=== PATIENT | female | born 1960 | race African-American/Black ===

== ENCOUNTER 2016-11-21 21:33 | Inpatient (IN) | payer MEDICAID ==
[~2016-11-21] VITALS: Ht 162.6 cm; Wt 198.2 kg
[~2016-11-21 21:33] MED LIST: ALBUAER3 IN; BENA20TA70 PO; DOXY-216 PO; FERR27TA2 PO; FURO20TA PO; HYDR-531 PO; POTA10IN PO
[2016-11-21] MEDS ORDERED: IPRATROPIUM BROM 0.5 MG/2.5ML INH SOL NEB ONE (22:30)
[2016-11-21] MEDS ORDERED: ALBUTEROL SULF 2.5 MG/0.5ML(0.5%) NEB SOLN NEB ONE (22:30)
[2016-11-21 22:46] LABS: Basophils # (auto) 0 uL; Basophils % (auto) 0.3 % (0.0-2.0); DEFINITIVE VIEW TRANSMISSION; Eosinophils # (auto) 0.4 uL; Eosinophils % (auto) 2.9 % (0.0-7.0); Hematocrit 42.7 % (36.0-46.0); Hemoglobin 13.5 g/dL (12.2-16.2); Lymphocytes % (auto) 7.6 % (10.0-50.0); Mean Corpuscular Hemoglobin 26.5 pg (28.0-32.0); Mean Corpuscular Hgb Conc. 31.7 g/dL (32.0-36.0); Mean Corpuscular Volume 83.4 fL (80.0-100.0); Mean Platelet Volume 9.8 fL (7.4-10.4); Monocytes # (auto) 0.4 uL; Monocytes % (auto) 2.8 % (0.0-12.0); Neutrophils # (auto) 11.3 uL; Neutrophils % (auto) 86.4 % (37.0-80.0); Platelet Count (auto) 268 10^3/uL (140-450); Red Cell Distribution Width 18.2 % (11.6-16.0); SUSPECT VIEW TRANSMISSION; White Blood Cell 13.1 10^3/uL (4.4-10.8)
[2016-11-21 23:08] LABS: INR 0.98 (0.9-1.15); Partial Thromboplastin Time 29.9 sec (22.64-33.71); Prothrombin Time 10.6 sec (9.37-12.3)
[2016-11-21 23:09] LABS: Anion Gap 5 (5-15); Aspartate Aminotransferase 28 U/L (15-37); BUN/Creatinine Ratio 11.5; Blood Urea Nitrogen 9 mg/dL (7-18); Carbon Dioxide 29 mmol/L (21-32); Chloride 104 mmol/L (98-107); GFR African American 98 mL/min; GFR Non-African American 81 mL/min; Glucose 139 mg/dL (74-106); Potassium 4.2 mmol/L (3.5-5.1); Sodium 138 mmol/L (136-145)
[2016-11-21 23:17] LABS: Alkaline Phosphatase 131 U/L (45-117); B-Type Natriuretic Peptide 35.35 pg/mL (0-100); Bilirubin, Total 0.3 mg/dL (0.2-1.0); Total Protein 8.9 g/dL (6.4-8.2)
[2016-11-21 23:19] LABS: Temperature: 23.3 C (20.0-25.0)
[2016-11-22] MEDS ORDERED: IPRATROPIUM BROM 0.5 MG/2.5ML INH SOL NEB ONE ×5 (00:30→07:45)
[2016-11-22] MEDS ORDERED: ALBUTEROL SULF 2.5 MG/0.5ML(0.5%) NEB SOLN NEB ONE ×6 (00:30→10:30)
[2016-11-22] MEDS ORDERED: methylPREDNISolone SOD SUCC 125 MG/2 ML VL IV ONE ×3 (00:30→10:30)
[2016-11-22 00:38] LABS: Allen Test Yes; Blood 02Sat 94.3 % (96-100); Blood COHb 1.3 % (0.5-1.5); Blood MetHb 0.3 % (0.0-1.5); HCO3 25.6 mmol/L (22-26.0); HHb 5.6 % (0.0-5.0); MODE NASAL CANNULA; O2Hb 92.8 % (94.0-97.0); PCO2(T) 55.7 mmHg (35.0-45.0); PO2(T) 85.5 mmHg (80.0-100.0); Sample Type Arterial
[2016-11-22] MEDS ORDERED: TEMAZEPAM 15 MG CAP PO PRN (07:15)
[2016-11-22] MEDS ORDERED: ONDANSETRON HCL 4 MG/2 ML VIAL IV PRN (07:15)
[2016-11-22] MEDS ORDERED: MORPHINE SULF INJ 2 MG/ML SYRINGE 1ML IV PRN ×2 (07:15)
[2016-11-22] MEDS ORDERED: ACETAMINOPHEN 325 MG TAB PO PRN (07:15)
[2016-11-22] MEDS ORDERED: NITROGLYCERIN 0.4 MG SL TAB SL PRN (07:15)
[2016-11-22] MEDS ORDERED: ALBUTEROL SULF 2.5 MG/0.5ML(0.5%) NEB SOLN NEB PRN (07:30)
[2016-11-22] MEDS ORDERED: PIPERACILLIN-TAZOB 3.375GM 100 ML IV ONE ×2 (07:45→10:00)
[2016-11-22 09:01] VITALS: BP 128/70
[2016-11-22] MEDS ORDERED: ENOXAPARIN SOD 30 MG/0.3 ML SYRINGE SC SCH (10:00)
[2016-11-22] MEDS ORDERED: IPRATROPIUM BROM 0.5 MG/2.5ML INH SOL NEB SCH (10:00)
[2016-11-22] MEDS ORDERED: methylPREDNISolone SOD SUCC 125 MG/2 ML VL IV SCH (10:00)
[2016-11-22 10:01] LABS: Allen Test Yes; Base Excess 1.8 mmol/L (-2.0-2.0); Blood 02Sat 90.2 % (96-100); Blood COHb 0.7 % (0.5-1.5); Blood MetHb 0.3 % (0.0-1.5); HCO3 29.4 mmol/L (22-26.0); HHb 9.7 % (0.0-5.0); MODE NASAL CANNULA; O2Hb 89.3 % (94.0-97.0); PCO2(T) 59.6 mmHg (35.0-45.0); PO2(T) 64.3 mmHg (80.0-100.0); Sample Type Arterial
[2016-11-22] MEDS: ALBUTEROL SULF 2.5 MG/0.5ML(0.5%) NEB SOLN NEB SCH ×2 (12:00→19:55)
[2016-11-22 12:30] VITALS: BP 129/75
[2016-11-22] MEDS: ZINC SULFATE 220 MG CAP PO SCH (12:53)
[2016-11-22] MEDS: FAMOTIDINE 20 MG TAB PO SCH ×2 (12:53→22:02)
[2016-11-22] MEDS: ASCORBIC ACID 500 MG TAB PO SCH ×2 (12:53→22:03)
[2016-11-22] MEDS: MULTIPLE VITAMIN TAB PO SCH (12:53)
[2016-11-22] MEDS: ENOXAPARIN SOD 40 MG/0.4 ML SYRINGE SC SCH (12:53)
[2016-11-22] MEDS: PIPERACILLIN-TAZOB 3.375GM 100 ML IV SCH ×2 (12:54→16:41)
[2016-11-22] MEDS: FUROSEMIDE 40 MG/4 ML VIAL IV SCH ×2 (12:54→17:22)
[2016-11-22] MEDS: cloNIDine HCL 0.1 MG TAB PO SCH ×2 (14:03→22:00)
[2016-11-22] MEDS: SODIUM CHLOR 0.9% PF (SALINE LOCK) 10ML VIAL IV SCH ×2 (14:03→22:02)
[2016-11-22 16:29] VITALS: BP 128/76
[2016-11-22] MEDS: methylPREDNISolone SOD SUCC 125 MG/2 ML VL IV SCH ×2 (16:41→22:02)
[2016-11-22] MEDS: IPRATROPIUM BROM 0.5 MG/2.5ML INH SOL NEB PRN (19:55)
[2016-11-22 20:00] VITALS: BP 121/58
[2016-11-22 22:00] VITALS: BP 121/58
[2016-11-23] VITALS (7 sets, daily range): BP systolic 121–151; BP diastolic 64–94
[2016-11-23] MEDS: IPRATROPIUM BROM 0.5 MG/2.5ML INH SOL NEB PRN ×3 (00:38→21:59)
[2016-11-23] MEDS: PIPERACILLIN-TAZOB 3.375GM 100 ML IV SCH ×2 (00:55→05:41)
[2016-11-23 02:33] LABS: Urine Bilirubin Negative (Negative); Urine Blood Negative /uL (Negative); Urine Color Yellow (Yellow); Urine Glucose Normal (Normal); Urine Ketone Negative (Negative); Urine Nitrite Negative (Negative); Urine RBC 1 /hpf (0 - 4); Urine Squamous Epithelial Cell FEW /hpf (<5); Urine Urobilinogen Normal (Negative)
[2016-11-23] MEDS: methylPREDNISolone SOD SUCC 125 MG/2 ML VL IV SCH ×4 (03:42→22:10)
[2016-11-23] MEDS: FUROSEMIDE 40 MG/4 ML VIAL IV SCH ×2 (05:41→18:27)
[2016-11-23] MEDS: SODIUM CHLOR 0.9% PF (SALINE LOCK) 10ML VIAL IV SCH ×3 (05:41→22:10)
[2016-11-23] MEDS: cloNIDine HCL 0.1 MG TAB PO SCH (05:41)
[2016-11-23 06:00] LABS: Basophils # (auto) 0.1 uL; Basophils % (auto) 0.6 % (0.0-2.0); DEFINITIVE VIEW TRANSMISSION; Eosinophils # (auto) 0 uL; Eosinophils % (auto) 0.1 % (0.0-7.0); Hematocrit 39.5 % (36.0-46.0); Hemoglobin 12.4 g/dL (12.2-16.2); Lymphocytes # (auto) 0.9 uL; Lymphocytes % (auto) 8.3 % (10.0-50.0); Mean Corpuscular Hemoglobin 26.4 pg (28.0-32.0); Mean Corpuscular Hgb Conc. 31.4 g/dL (32.0-36.0); Mean Corpuscular Volume 84.2 fL (80.0-100.0); Mean Platelet Volume 11.4 fL (7.4-10.4); Monocytes # (auto) 0.3 uL; Monocytes % (auto) 2.3 % (0.0-12.0); Neutrophils # (auto) 10.1 uL; Neutrophils % (auto) 88.7 % (37.0-80.0); Platelet Count (auto) 238 10^3/uL (140-450); Red Cell Distribution Width 18.1 % (11.6-16.0); SUSPECT VIEW TRANSMISSION; White Blood Cell 11.4 10^3/uL (4.4-10.8)
[2016-11-23 06:27] LABS: Albumin 3.1 g/dL (3.4-5.0); Calcium 8.8 mg/dL (8.5-10.1); Potassium 4.6 mmol/L (3.5-5.1)
[2016-11-23 06:38] LABS: Bilirubin, Total 0.2 mg/dL (0.2-1.0)
[2016-11-23] MEDS ORDERED: ALBUTEROL SULF 2.5 MG/0.5ML(0.5%) NEB SOLN ONE ×2 (10:08→21:47)
[2016-11-23] MEDS: MULTIPLE VITAMIN TAB PO SCH (10:08)
[2016-11-23] MEDS: FAMOTIDINE 20 MG TAB PO SCH ×2 (10:08→22:10)
[2016-11-23] MEDS: ASCORBIC ACID 500 MG TAB PO SCH ×2 (10:08→22:10)
[2016-11-23] MEDS: ENOXAPARIN SOD 40 MG/0.4 ML SYRINGE SC SCH (10:08)
[2016-11-23] MEDS: ZINC SULFATE 220 MG CAP PO SCH (10:08)
[2016-11-23] MEDS: ALBUTEROL SULF 2.5 MG/0.5ML(0.5%) NEB SOLN NEB SCH ×3 (10:16→21:57)
[2016-11-23] MEDS ORDERED: FERROUS SULFATE 325 MG TAB PO ONE (10:30)
[2016-11-23] MEDS: BENAZEPRIL HCL 10 MG TAB PO SCH (12:41)
[2016-11-23] MEDS: DOXYCYCLINE 100 MG TAB/CAP PO SCH ×2 (12:41→22:10)
[2016-11-23] MEDS: HCTZ 25 MG TAB PO SCH (12:42)
[2016-11-23] MEDS ORDERED: cloNIDine HCL 0.1 MG TAB PO SCH (14:00)
[2016-11-23] MEDS ORDERED: cloNIDine HCL 0.1 MG TAB PO PRN ×2 (14:17→14:45)
[2016-11-23] MEDS ORDERED: DOXYCYCLINE HYCLATE PO SCH (22:00)
[2016-11-24] VITALS (7 sets, daily range): BP systolic 127–156; BP diastolic 70–98
[2016-11-24] MEDS: methylPREDNISolone SOD SUCC 125 MG/2 ML VL IV SCH ×4 (04:05→21:32)
[2016-11-24] MEDS: SODIUM CHLOR 0.9% PF (SALINE LOCK) 10ML VIAL IV SCH ×3 (05:50→21:17)
[2016-11-24] MEDS: FUROSEMIDE 40 MG/4 ML VIAL IV SCH ×2 (05:50→18:08)
[2016-11-24 06:16] LABS: Basophils # (auto) 0 uL; DEFINITIVE VIEW TRANSMISSION; Eosinophils # (auto) 0 uL; Hematocrit 39.8 % (36.0-46.0); Hemoglobin 12.8 g/dL (12.2-16.2); Lymphocytes # (auto) 0.9 uL; Lymphocytes % (auto) 6.4 % (10.0-50.0); Mean Corpuscular Hemoglobin 26.6 pg (28.0-32.0); Mean Corpuscular Hgb Conc. 32.1 g/dL (32.0-36.0); Mean Corpuscular Volume 82.8 fL (80.0-100.0); Mean Platelet Volume 10.1 fL (7.4-10.4); Monocytes # (auto) 0.6 uL; Monocytes % (auto) 4.6 % (0.0-12.0); Neutrophils # (auto) 11.9 uL; Platelet Count (auto) 264 10^3/uL (140-450); Red Cell Distribution Width 18.3 % (11.6-16.0); SUSPECT VIEW TRANSMISSION; White Blood Cell 13.4 10^3/uL (4.4-10.8)
[2016-11-24] MEDS ORDERED: ALBUTEROL SULF 2.5 MG/0.5ML(0.5%) NEB SOLN ONE ×3 (06:26→20:22)
[2016-11-24] MEDS: ALBUTEROL SULF 2.5 MG/0.5ML(0.5%) NEB SOLN NEB SCH ×3 (06:30→20:31)
[2016-11-24] MEDS: IPRATROPIUM BROM 0.5 MG/2.5ML INH SOL NEB PRN ×2 (06:30→12:17)
[2016-11-24 06:46] LABS: Albumin 3.1 g/dL (3.4-5.0); BUN/Creatinine Ratio 26.4; Calcium 8.8 mg/dL (8.5-10.1); Potassium 4.5 mmol/L (3.5-5.1)
[2016-11-24 06:49] LABS: Bilirubin, Total 0.2 mg/dL (0.2-1.0); Total Protein 7.8 g/dL (6.4-8.2)
[2016-11-24] MEDS: ENOXAPARIN SOD 40 MG/0.4 ML SYRINGE SC SCH (09:18)
[2016-11-24] MEDS: DOXYCYCLINE 100 MG TAB/CAP PO SCH ×2 (09:19→21:16)
[2016-11-24] MEDS: FAMOTIDINE 20 MG TAB PO SCH ×2 (09:21→21:17)
[2016-11-24] MEDS: HCTZ 25 MG TAB PO SCH (09:21)
[2016-11-24] MEDS: MULTIPLE VITAMIN TAB PO SCH (09:22)
[2016-11-24] MEDS: ASCORBIC ACID 500 MG TAB PO SCH ×2 (09:23→21:16)
[2016-11-24] MEDS: ZINC SULFATE 220 MG CAP PO SCH (09:23)
[2016-11-24] MEDS: BENAZEPRIL HCL 10 MG TAB PO SCH (09:23)
[2016-11-24] MEDS ORDERED: [UNRECOGNIZED DRUG - OTHER] PO SCH (10:00)
[2016-11-25] MEDS: methylPREDNISolone SOD SUCC 125 MG/2 ML VL IV SCH ×2 (03:24→10:03)
[2016-11-25] MEDS: IPRATROPIUM BROM 0.5 MG/2.5ML INH SOL NEB PRN ×2 (04:15→12:20)
[2016-11-25] MEDS: ALBUTEROL SULF 2.5 MG/0.5ML(0.5%) NEB SOLN NEB PRN ×2 (04:15→12:20)
[2016-11-25] MEDS: SODIUM CHLOR 0.9% PF (SALINE LOCK) 10ML VIAL IV SCH (05:14)
[2016-11-25] MEDS: FUROSEMIDE 40 MG/4 ML VIAL IV SCH (05:14)
[2016-11-25 05:29] VITALS: BP 153/86
[2016-11-25 08:00] VITALS: BP 129/77
[2016-11-25 09:00] VITALS: BP 132/84
[2016-11-25] MEDS: FAMOTIDINE 20 MG TAB PO SCH (09:50)
[2016-11-25] MEDS: ZINC SULFATE 220 MG CAP PO SCH (09:51)
[2016-11-25] MEDS: MULTIPLE VITAMIN TAB PO SCH (09:51)
[2016-11-25] MEDS: DOXYCYCLINE 100 MG TAB/CAP PO SCH (09:51)
[2016-11-25] MEDS: ASCORBIC ACID 500 MG TAB PO SCH (09:51)
[2016-11-25] MEDS: BENAZEPRIL HCL 10 MG TAB PO SCH (09:52)
[2016-11-25] MEDS: HCTZ 25 MG TAB PO SCH (10:03)
[2016-11-25] MEDS: ENOXAPARIN SOD 40 MG/0.4 ML SYRINGE SC SCH (10:04)
[2016-11-25] MEDS ORDERED: PRE5T PO (11:51)
[2016-11-25 12:22] VITALS: BP 134/82
[2016-11-25 13:00] VITALS: BP 152/83
== END 2016-11-25 14:15 | disposition home or self-care (01) | DRG 140 ==
LOC: ER 21:47 → TELE 21:48 → TELE-E-ADS 11-22 08:00 → TELE-CENTR 11-22 10:53
PROVIDERS: ADMIT Emergency Medicine; ATTEND Internal Medicine
DX: J44.1 Chronic obstructive pulmonary disease with (acute) exacerbation (principal); E43 Unspecified severe protein-calorie malnutrition; I50.33 Acute on chronic diastolic (congestive) heart failure; G47.33 Obstructive sleep apnea (adult) (pediatric); E66.01 Morbid (severe) obesity due to excess calories; Z68.45 Body mass index [BMI] 70 or greater, adult; F17.210 Nicotine dependence, cigarettes, uncomplicated; I11.0 Hypertensive heart disease with heart failure; Z86.73 Personal history of transient ischemic attack (TIA), and cerebral infarction without residual deficits
CPT/HCPCS: 36415; 36600; 71010; 80053; 81001; 82805; 83735; 83880; 84484; 85025; 85610; 85730; 87040; 87081; 93005; 93970; 94640; 94644; 94645; 94761; 96374; J2543

== ENCOUNTER 2017-02-03 22:42 | Emergency (ER) | payer MEDICAID ==
[~2017-02-03] VITALS: Ht 165.1 cm; Wt 158.8 kg
[~2017-02-03 22:42] MED LIST changes: +PRE5T PO
[2017-02-03] MEDS ORDERED: IPRATROPIUM BROM 0.5 MG/2.5ML INH SOL NEB ONE (23:45)
[2017-02-03] MEDS ORDERED: ALBUTEROL SULF 2.5 MG/0.5ML(0.5%) NEB SOLN NEB ONE (23:45)
[2017-02-04] LABS: Basophils # (auto) 0.1 uL; Basophils % (auto) 0.5 % (0.0-2.0); DEFINITIVE SEE PRINTOUT; Eosinophils # (auto) 0.5 uL; Eosinophils % (auto) 4.4 % (0.0-7.0); Hematocrit 41.6 % (36.0-46.0); Hemoglobin 12.9 g/dL (12.2-16.2); Lymphocytes # (auto) 2.9 uL; Lymphocytes % (auto) 24.6 % (10.0-50.0); Mean Corpuscular Hemoglobin 26.6 pg (28.0-32.0); Mean Corpuscular Hgb Conc. 30.9 g/dL (32.0-36.0); Mean Corpuscular Volume 86.3 fL (80.0-100.0); Mean Platelet Volume 9.6 fL (7.4-10.4); Monocytes # (auto) 0.5 uL; Monocytes % (auto) 4.3 % (0.0-12.0); Neutrophils # (auto) 7.9 uL; Neutrophils % (auto) 66.2 % (37.0-80.0); Platelet Count (auto) 228 10^3/uL (140-450); White Blood Cell 11.9 10^3/uL (4.4-10.8)
[2017-02-04 00:17] LABS: Albumin 3.2 g/dL (3.4-5.0); Anion Gap 9 (5-15); Aspartate Aminotransferase 23 U/L (15-37); BUN/Creatinine Ratio 10.8; Blood Urea Nitrogen 9 mg/dL (7-18); Calcium 8.5 mg/dL (8.5-10.1); Carbon Dioxide 25 mmol/L (21-32); Chloride 109 mmol/L (98-107); GFR African American 91 mL/min; GFR Non-African American 75 mL/min; Glucose 106 mg/dL (74-106); Potassium 3.6 mmol/L (3.5-5.1); Sodium 143 mmol/L (136-145)
[2017-02-04 00:23] LABS: Alkaline Phosphatase 117 U/L (45-117); Bilirubin, Total 0.3 mg/dL (0.2-1.0)
[2017-02-04 00:51] LABS: Temperature: 21.3 C (20.0-25.0)
[2017-02-04] MEDS ORDERED: FUROSEMIDE 20 MG/2 ML VIAL IV ONE (01:45)
[2017-02-04] MEDS ORDERED: methylPREDNISolone SOD SUCC 125 MG/2 ML VL IV ONE (01:45)
[2017-02-04 02:00] VITALS: BP 150/74
[2017-02-04] MEDS ORDERED: ALBUTEROL SULF 2.5 MG/0.5ML(0.5%) NEB SOLN NEB ONE (02:00)
[2017-02-04] MEDS ORDERED: IPRATROPIUM BROM 0.5 MG/2.5ML INH SOL NEB ONE (02:00)
[2017-02-04] MEDS ORDERED: IOHEXOL 350 MG/ML 100ML IJ ONE (02:38)
[2017-02-04 02:54] LABS: INR 0.95 (0.9-1.15); Partial Thromboplastin Time 29.4 sec (22.64-33.71); Prothrombin Time 10.4 sec (9.37-12.3)
== END 2017-02-04 05:08 | disposition home or self-care (01) ==
LOC: ER 22:46
DX: J44.1 Chronic obstructive pulmonary disease with (acute) exacerbation (principal); I27.2 Other secondary pulmonary hypertension; I11.0 Hypertensive heart disease with heart failure; I50.9 Heart failure, unspecified; F17.210 Nicotine dependence, cigarettes, uncomplicated
CPT/HCPCS: 36415; 71020; 71275; 80053; 83735; 83880; 84484; 85025; 85379; 85610; 85730; 93005; 94640; 96374; 96375; 99285; J1940; J2930; Q9967